=== PATIENT | male | born 1990 | race Caucasian/White ===

== ENCOUNTER 2018-01-08 09:49 | Emergency (ER) | payer OTHER ==
[~2018-01-08] VITALS: Ht 182.9 cm; Wt 86.2 kg
[~2018-01-08 09:49] MED LIST: Cleocin HCl300 MG PO; DOXY100 PO; FAMC500 PO; HYDHCL25 PO; HYDPAM25 PO; IBUP800 PO; INCARCERATION; NAPR500 PO; OLAN5; PENVK500 PO; PRED5 PO; PROM25 PO; RISP2 PO; RISP3 PO; RXPROM25 PO; SYMBIAX PO; TRAM50 PO; Triamcinolone A15 GM TOP; Veetids 500500 MG PO; Zofran Odt8 MG SL
[2018-01-08] MEDS ORDERED: Veetids 500500 MG PO (11:23)
[2018-01-08] MEDS ORDERED: Norco 5-325 Ta1 EACH PO (11:23)
[2018-03-09] MEDS ORDERED: PENVK500 PO (17:57)
[2018-08-02] MEDS ORDERED: Veetids 500500 MG PO (08:15)
== END 2018-01-08 11:30 | disposition home or self-care (01) ==
LOC: ER 09:49
DX: K04.7 Periapical abscess without sinus (principal); K03.81 Cracked tooth; F31.9 Bipolar disorder, unspecified
CPT/HCPCS: 41800; 99283

== ENCOUNTER 2018-02-07 14:08 | Emergency (ER) | payer OTHER ==
[~2018-02-07] VITALS: Ht 185.4 cm; Wt 81.7 kg
[~2018-02-07 14:08] MED LIST changes: +Norco 5-325 Ta1 EACH PO
[2018-02-07] MEDS ORDERED: Veetids 500500 MG PO (15:11)
[2018-02-07] MEDS ORDERED: PERIDEX15 ML MM (15:11)
== END 2018-02-07 15:17 | disposition home or self-care (01) ==
LOC: ER 14:08
DX: K02.9 Dental caries, unspecified (principal)
CPT/HCPCS: 99283

== ENCOUNTER 2018-04-02 13:45 | Emergency (ER) | payer OTHER ==
[~2018-04-02] VITALS: Ht 185.4 cm; Wt 81.7 kg
[~2018-04-02 13:45] MED LIST changes: +PERIDEX15 ML MM
[2018-04-02 14:42] LABS: BASOPHILS ABSOLUTE AUTO 0.06 K/mm3 (0.00-0.23); BASOPHILS PERCENT AUTO 1 % (0-2); EOSINOPHILS ABSOLUTE AUTO 0.06 K/mm3 (0.00-0.68); EOSINOPHILS PERCENT AUTO 1 % (0-6); Hematocrit 44.1 % (37.0-53.0); Hemoglobin 14.6 g/dL (13.5-17.5); IMMATURE GRAN ABSOLUTE AUTO 0.04 K/mm3 (0.00-0.10); IMMATURE GRAN PERCENT AUTO 1 % (0-1); LYMPHOCYTES ABSOLUTE AUTO 2.38 K/mm3 (0.84-5.20); LYMPHOCYTES PERCENT AUTO 28 % (21-46); MONOCYTES ABSOLUTE AUTO 0.61 K/mm3 (0.16-1.47); MONOCYTES PERCENT AUTO 7 % (4-13); Mean Corpuscular HGB 30.3 pg (26.0-34.0); Mean Corpuscular HGB Conc 33.1 g/dL (31.5-36.5); Mean Corpuscular Volume 92 fL (80-100); Mean Platelet Volume 11.8 fL (9.1-12.4); NEUTROPHILS ABSOLUTE AUTO 5.31 K/mm3 (1.96-9.15); NEUTROPHILS PERCENT AUTO 63 % (41-73); Platelet Count 181 K/mm3 (150-400); RDW Coefficient Variation 13.1 % (11.7-14.2); RDW Standard Deviation 44.3 fL (35.1-46.3); Red Blood Cell Count 4.82 M/mm3 (4.30-5.90); White Blood Cell Count 8.46 K/mm3 (4.00-11.30)
[2018-04-02 14:49] LABS: Alanine Aminotransfer (ALT/SGP 35 U/L (12-78); Albumin, Blood 3.7 g/dL (3.4-5.0); Albumin/Globulin Ratio 1.3 (0.8-1.8); Alk Phos 75 U/L (50-136); Anion Gap 6 mmol/L (6-16); Aspartate Aminotrans (AST/SGOT 30 U/L (12-37); Bilirubin, Total 0.8 mg/dL (0.1-1.0); Blood Urea Nitrogen 13 mg/dL (8-24); Bun/Creatinine Ratio 18.5 (12.0-20.0); CO2, Blood 28 mmol/L (21-32); Calcium, Blood 7.9 mg/dL (8.5-10.1); Chloride, Blood 108 mmol/L (98-108); Globulin, Blood 2.8 g/dL (2.2-4.0); Glomerular Filtration Rate >60 (60-); Glucose, Blood 113 mg/dL (70-99); Potassium, Blood 3.8 mmol/L (3.5-5.5); Sodium, Blood 142 mmol/L (136-145); Total Protein, Blood 6.5 g/dL (6.4-8.2); Troponin I <0.015 ng/mL (0.000-0.040)
== END 2018-04-02 15:43 | disposition home or self-care (01) ==
LOC: ER 13:45
PROVIDERS: Physician Assistant
DX: R07.89 Other chest pain (principal); Z87.891 Personal history of nicotine dependence
CPT/HCPCS: 36415; 71046; 80053; 84484; 85025; 93005; 93010; 99283

== ENCOUNTER 2018-04-26 05:38 | Emergency (ER) | payer OTHER ==
[~2018-04-26] VITALS: Ht 182.9 cm; Wt 81.7 kg
[2018-04-26] MEDS ORDERED: Veetids 500500 MG PO (06:10)
== END 2018-04-26 06:22 | disposition home or self-care (01) ==
LOC: ER 05:38
DX: K04.7 Periapical abscess without sinus (principal); K02.9 Dental caries, unspecified; F31.9 Bipolar disorder, unspecified; F17.210 Nicotine dependence, cigarettes, uncomplicated
CPT/HCPCS: 99282

== ENCOUNTER 2018-04-30 02:23 | Emergency (ER) | payer OTHER ==
[~2018-04-30] VITALS: Ht 182.9 cm; Wt 77.6 kg
== END 2018-04-30 06:39 | disposition left against medical advice (07) ==
LOC: ER 02:23
DX: Z53.21 Procedure and treatment not carried out due to patient leaving prior to being seen by health care provider (principal)

== ENCOUNTER 2019-05-07 13:52 | Emergency (ER) | payer OTHER ==
[~2019-05-07] VITALS: Ht 185.4 cm; Wt 87.1 kg
[2019-05-07] MEDS ORDERED: Prozac20 MG PO (14:33)
[2019-05-07] MEDS ORDERED: DIAZ5 PO (14:33)
[2019-05-07] MEDS ORDERED: OLAN10 PO (14:33)
[2019-05-07] MEDS ORDERED: CLON1 PO (14:34)
[2019-05-07] MEDS ORDERED: PENVK500 PO (14:55)
== END 2019-05-07 16:20 | disposition home or self-care (01) ==
LOC: ER 13:52
DX: K04.7 Periapical abscess without sinus (principal); L02.512 Cutaneous abscess of left hand; Z79.899 Other long term (current) drug therapy; F31.9 Bipolar disorder, unspecified; F32.9 Major depressive disorder, single episode, unspecified; F41.9 Anxiety disorder, unspecified; F17.210 Nicotine dependence, cigarettes, uncomplicated
CPT/HCPCS: 10060; 99282-25

== ENCOUNTER 2019-05-18 19:28 | Emergency (ER) | payer OTHER ==
[~2019-05-18] VITALS: Ht 185.4 cm; Wt 87.1 kg
[~2019-05-18 19:28] MED LIST changes: +CLON1 PO; +DIAZ5 PO; +OLAN10 PO; +Prozac20 MG PO
[2019-05-18] MEDS ORDERED: CEPH500 PO (21:54)
[2019-05-18] MEDS ORDERED: Bactrim Ds Tab1 EACH PO (21:54)
== END 2019-05-18 22:04 | disposition home or self-care (01) ==
LOC: ER 19:28
DX: L02.415 Cutaneous abscess of right lower limb (principal); L03.115 Cellulitis of right lower limb; Z79.899 Other long term (current) drug therapy; F31.9 Bipolar disorder, unspecified; F17.210 Nicotine dependence, cigarettes, uncomplicated
CPT/HCPCS: 10060; 96372-59; 99283-25; J2060

== ENCOUNTER 2019-07-07 18:44 | Emergency (ER) | payer OTHER ==
[~2019-07-07] VITALS: Ht 185.4 cm; Wt 87.1 kg
[~2019-07-07 18:44] MED LIST changes: +Bactrim Ds Tab1 EACH PO; +CEPH500 PO
[2019-07-07] MEDS ORDERED: Bactrim Ds Tab1 EACH PO (20:19)
[2019-07-07] MEDS ORDERED: CEPH500 PO (20:19)
== END 2019-07-07 20:33 | disposition home or self-care (01) ==
LOC: ER 18:44
DX: L03.115 Cellulitis of right lower limb (principal); Z79.899 Other long term (current) drug therapy; F31.9 Bipolar disorder, unspecified; F17.210 Nicotine dependence, cigarettes, uncomplicated
CPT/HCPCS: 99282

== ENCOUNTER 2020-07-09 08:03 | Emergency (ER) | payer OTHER ==
[~2020-07-09] VITALS: Ht 182.9 cm; Wt 80.7 kg
[2020-07-09 10:31] LABS: Alanine Aminotransfer (ALT/SGP 21 U/L (12-78); Albumin/Globulin Ratio 1.1 (0.8-1.8); Alk Phos 90 U/L (50-136); Anion Gap 4 mmol/L (6-16); Aspartate Aminotrans (AST/SGOT 25 U/L (12-37); Bilirubin, Total 0.2 mg/dL (0.1-1.0); Blood Urea Nitrogen 8 mg/dL (8-24); Bun/Creatinine Ratio 12.9 (12.0-20.0); CO2, Blood 29 mmol/L (21-32); Calcium, Blood 9.1 mg/dL (8.5-10.1); Chloride, Blood 106 mmol/L (98-108); Creatinine, Blood 0.62 mg/dL (0.60-1.20); Globulin, Blood 3.5 g/dL (2.2-4.0); Glomerular Filtration Rate >60 (60-); Glucose, Blood 103 mg/dL (70-99); Potassium, Blood 3.8 mmol/L (3.5-5.5); Sodium, Blood 139 mmol/L (136-145); Total Protein, Blood 7.5 g/dL (6.4-8.2)
[2020-07-09 10:46] LABS: BASOPHILS ABSOLUTE AUTO 0.09 K/mm3 (0.00-0.23); BASOPHILS PERCENT AUTO 1 % (0-2); EOSINOPHILS ABSOLUTE AUTO 0.02 K/mm3 (0.00-0.68); EOSINOPHILS PERCENT AUTO 0 % (0-6); Hematocrit 45.5 % (37.0-53.0); Hemoglobin 14.8 g/dL (13.5-17.5); IMMATURE GRAN ABSOLUTE AUTO 0.06 K/mm3 (0.00-0.10); IMMATURE GRAN PERCENT AUTO 1 % (0-1); LYMPHOCYTES ABSOLUTE AUTO 2.38 K/mm3 (0.84-5.20); LYMPHOCYTES PERCENT AUTO 25 % (21-46); MONOCYTES ABSOLUTE AUTO 0.84 K/mm3 (0.16-1.47); MONOCYTES PERCENT AUTO 9 % (4-13); Mean Corpuscular HGB Conc 32.5 g/dL (31.5-36.5); Mean Corpuscular Volume 92 fL (80-100); Mean Platelet Volume 11.7 fL (9.1-12.4); NEUTROPHILS ABSOLUTE AUTO 6.08 K/mm3 (1.96-9.15); NEUTROPHILS PERCENT AUTO 64 % (41-73); Platelet Count 224 K/mm3 (150-400); RDW Coefficient Variation 13.2 % (11.7-14.2); RDW Standard Deviation 44.5 fL (35.1-46.3); Red Blood Cell Count 4.94 M/mm3 (4.30-5.90); White Blood Cell Count 9.47 K/mm3 (4.00-11.30)
== END 2020-07-09 11:29 | disposition home or self-care (01) ==
LOC: ER 08:03
PROVIDERS: Physician Assistant
DX: R07.81 Pleurodynia (principal); F31.9 Bipolar disorder, unspecified; F42.9 Obsessive-compulsive disorder, unspecified; F41.9 Anxiety disorder, unspecified; Z79.899 Other long term (current) drug therapy
CPT/HCPCS: 36415; 71046; 80053; 83690; 85025; 85379; 99284-25

== ENCOUNTER 2023-02-12 12:05 | Emergency (ER) | payer OTHER ==
[~2023-02-12] VITALS: Ht 182.9 cm; Wt 96.6 kg
[2023-02-12] MEDS ORDERED: FLUOXETINE HCL20 M1 PO (17:52)
[2023-02-12] MEDS ORDERED: CARV25 PO (17:53)
[2023-02-12] MEDS ORDERED: OLAN20 MM (17:53)
[2023-02-12] MEDS ORDERED: VALIUM513 PO (17:53)
[2023-02-12 20:30] VITALS: BP 115/99
[2023-02-12] MEDS ORDERED: OXAYDO5 M1 PO (20:33)
== END 2023-02-12 20:50 | disposition home or self-care (01) ==
LOC: ER 12:05
DX: S82.842A Displaced bimalleolar fracture of left lower leg, initial encounter for closed fracture (principal); X50.1XXA Overexertion from prolonged static or awkward postures, initial encounter; G47.30 Sleep apnea, unspecified; F17.200 Nicotine dependence, unspecified, uncomplicated
CPT/HCPCS: 27810; 73610; 96374-59; 96375-59; 99152; 99283-25; A9270; J2270; J2704; J3010; J7030

== ENCOUNTER 2023-02-17 17:33 | Emergency (ER) | payer OTHER ==
[~2023-02-17] VITALS: Ht 182.9 cm; Wt 97.5 kg
[~2023-02-17 17:33] MED LIST changes: +CARV25 PO; +FLUOXETINE HCL20 M1 PO; +OLAN20 MM; +OXAYDO5 M1 PO; +VALIUM513 PO
[2023-02-17 18:04] VITALS: BP 148/86
[2023-02-17] MEDS ORDERED: Percocet 5-3251 EACH PO (18:37)
== END 2023-02-17 18:43 | disposition home or self-care (01) ==
LOC: ER 17:33
DX: Z76.0 Encounter for issue of repeat prescription (principal); Z88.8 Allergy status to other drugs, medicaments and biological substances; Z79.899 Other long term (current) drug therapy; F17.200 Nicotine dependence, unspecified, uncomplicated
CPT/HCPCS: 99281

== ENCOUNTER 2023-02-24 13:38 | Day surgery (SDC) | payer OTHER ==
[~2023-02-24] VITALS: Ht 182.9 cm; Wt 93.8 kg
[~2023-02-24 13:38] MED LIST changes: +Percocet 5-3251 EACH PO
--- NOTE | 2023-02-24 15:58 | NUR ---
02/24/23 1550 Alyson Yadav A PILLOW UNDER HEAD, RIGHT HIP BUMP, ARMS SECURED ON PADDED ARM BOARDS. GENERALIZED SWELLING AND BRUSING NOTED TO LEFT LOWER EXTREMITY. NO OPEN AREAS NOTED.
[2023-02-24 17:54] VITALS: BP 116/75
--- NOTE | 2023-02-24 18:02 | NUR ---
02/24/23 1802 Kate Rivas PERCOCET GIVEN FOR 8/10 PAIN PRIOR TO DISCHARGE, PATIENT REPORTS FEELS VERY BLOATED WHEN TAKING TYLENOL BUT WOULD LIKE TO TAKE THE PERCOCET AT THIS TIME. PATIENT ENCOURAGED TO CALL DR MIRANAD'S OFFICE IN THE MORNING IF HE EXPERIENCES THIS AND NEEDS TO CHANGE HIS PRESCRIPTION. PATIENT VERBALIZES UNDERSTANDING.
== END 2023-02-24 18:10 | disposition home or self-care (01) ==
LOC: ORSCSDS 13:38
PROVIDERS: Podiatrist Foot & Ankle Surgery
PROC: 0QSK04Z Reposition Left Fibula with Internal Fixation Device, Open Approach (ICD-10-PCS; principal; 2023-02-24 15:00)
PROC: 0QSH04Z Reposition Left Tibia with Internal Fixation Device, Open Approach (ICD-10-PCS; principal; 2023-02-24 15:00)
DX: S82.842A Displaced bimalleolar fracture of left lower leg, initial encounter for closed fracture (principal); W01.0XXA Fall on same level from slipping, tripping and stumbling without subsequent striking against object, initial encounter; F17.210 Nicotine dependence, cigarettes, uncomplicated; F31.9 Bipolar disorder, unspecified; F41.9 Anxiety disorder, unspecified; R73.03 Prediabetes; Z79.899 Other long term (current) drug therapy
CPT/HCPCS: 82947; A9270; C1713; C1769; C1776; J0171; J0690; J2250; J2704; J2795; J3010

== ENCOUNTER 2023-07-29 11:18 | Emergency (ER) | payer OTHER ==
[~2023-07-29] VITALS: Ht 182.9 cm; Wt 83.9 kg
[~2023-07-29 11:18] MED LIST changes: +NALOXONE HC1 MG/1 ML IM
[2023-07-29 11:31] VITALS: BP 134/97
[2023-07-29] MEDS ORDERED: IBU600 M1 PO (11:34)
[2023-07-29] MEDS ORDERED: AMOCLA875 PO (11:34)
== END 2023-07-29 11:34 | disposition home or self-care (01) ==
LOC: ER 11:18
DX: K04.7 Periapical abscess without sinus (principal); Z88.8 Allergy status to other drugs, medicaments and biological substances; Z79.899 Other long term (current) drug therapy; F17.210 Nicotine dependence, cigarettes, uncomplicated
CPT/HCPCS: 99282

== ENCOUNTER 2023-08-30 19:37 | Emergency (ER) | payer OTHER ==
[~2023-08-30] VITALS: Ht 185.4 cm; Wt 81.7 kg
[~2023-08-30 19:37] MED LIST changes: +AMOCLA875 PO; +IBU600 M1 PO
[2023-08-30 20:39] LABS: Hematocrit 50.9 % (37.0-53.0); Hemoglobin 16.2 g/dL (13.5-17.5); Mean Corpuscular HGB 28.3 pg (26.0-34.0); Mean Corpuscular HGB Conc 31.8 g/dL (31.5-36.5); Mean Corpuscular Volume 89 fL (80-100); Mean Platelet Volume 11.2 fL (9.1-12.4); Platelet Count 318 K/mm3 (150-400); RDW Coefficient Variation 14.1 % (11.7-14.2); RDW Standard Deviation 45.6 fL (35.1-46.3); Red Blood Cell Count 5.72 M/mm3 (4.30-5.90); White Blood Cell Count 17.95 K/mm3 (4.00-11.30)
[2023-08-30 21:18] LABS: BASOPHILS PERCENT MAN 0 % (0-2); EOSINOPHILS ABSOLUTE MAN 0.89 K/mm3 (0.00-0.68); EOSINOPHILS PERCENT MAN 5 % (0-6); LYMPHOCYTES % ATYPICAL MANUAL 2 % (0-0); LYMPHOCYTES ABSOLUTE MAN 5.92 K/mm3 (0.84-5.20); LYMPHOCYTES PERCENT MAN 31 % (21-46); MONOCYTES ABSOLUTE MAN 0.35 K/mm3 (0.16-1.47); MONOCYTES PERCENT MAN 2 % (4-13); NEUTROPHILS ABSOLUTE MAN 10.77 K/mm3 (1.96-9.15); SEG NEUTROPHILS PERCENT MAN 60 % (41-73); TOTAL CELLS COUNTED 100
[2023-08-30 21:23] LABS: Alanine Aminotransfer (ALT/SGP 76 U/L (12-78); Albumin, Blood 4.4 g/dL (3.4-5.0); Albumin/Globulin Ratio 0.9 (0.8-1.8); Alk Phos 138 U/L (50-136); Anion Gap Unable to Calculate mmol/L (6-16); Aspartate Aminotrans (AST/SGOT 44 U/L (12-37); Bilirubin, Total 0.3 mg/dL (0.1-1.0); Blood Urea Nitrogen 16 mg/dL (8-24); Bun/Creatinine Ratio 13.9 (12.0-20.0); CO2, Blood 33 mmol/L (21-32); Calcium, Blood 9.7 mg/dL (8.5-10.1); Chloride, Blood 107 mmol/L (98-108); Creatinine, Blood 1.15 mg/dL (0.60-1.20); Globulin, Blood 4.8 g/dL (2.2-4.0); Glomerular Filtration Rate 88 (60-); Glucose, Blood 168 mg/dL (70-99); Potassium, Blood 4.8 mmol/L (3.5-5.5); Sodium, Blood 139 mmol/L (136-145); Total Protein, Blood 9.2 g/dL (6.4-8.2)
[2023-08-30] MEDS ORDERED: NARCAN4 M1 (22:00)
[2023-08-31 00:15] VITALS: BP 126/90
== END 2023-08-31 00:31 | disposition home or self-care (01) ==
LOC: ER 19:37
PROVIDERS: Student in an Organized Health Care Education/Training Program
DX: T43.651A Poisoning by methamphetamines accidental (unintentional), initial encounter (principal); R41.82 Altered mental status, unspecified; F31.9 Bipolar disorder, unspecified; F17.210 Nicotine dependence, cigarettes, uncomplicated; Z88.8 Allergy status to other drugs, medicaments and biological substances; Z79.899 Other long term (current) drug therapy
CPT/HCPCS: 71045; 80053; 85025; 93005; 93010; 96372; 99285-25; J2310